=== PATIENT | female | born 1965 | race Caucasian/White ===

== ENCOUNTER → 2017-08-05 | Outpatient (CLI) | payer BC | LOC: M.RAD 16:30 | DX: Z12.31 Encounter for screening mammogram for malignant neoplasm of breast (principal) ==

== ENCOUNTER → 2018-08-30 | Outpatient (CLI) | payer BC | LOC: M.RAD 16:24 | DX: Z12.31 Encounter for screening mammogram for malignant neoplasm of breast (principal) ==

== ENCOUNTER → 2019-09-10 | Outpatient (CLI) | payer BC | LOC: M.RAD 09-07 15:15 | DX: Z12.31 Encounter for screening mammogram for malignant neoplasm of breast (principal) ==

== ENCOUNTER → 2021-03-27 | Outpatient (CLI) | payer OTHER | LOC: M.ULTRA 11:26 | PROVIDERS: ATTEND Obstetrics & Gynecology | DX: N60.02 Solitary cyst of left breast (principal) ==